=== PATIENT | male | born 1965 | race Caucasian/White ===

== ENCOUNTER 2017-03-21 10:44 | Outpatient (CLI) | payer OTHER ==
[2017-03-21 12:06] LABS: Blood Urea Nitrogen 11 mg/dL (9-20)
--- NOTE | 2017-03-21 13:17 | Magnetic Resonance Report ---
MRI of the brain with and without contrast. History: Recurrent vertigo. Procedure: Routine brain protocol with and without contrast. Findings: The posterior fossa is normal. The ventricles are normal in size and contour. There is no evidence of restricted diffusion. In the anterior aspect of the left middle cranial fossa, there is an ovoid shaped extra axial mass measuring 4.0 x 2.5 cm. This demonstrates hyperintense T2 and hypointense T1 signal with no postcontrast enhancement. No intra-axial masses are seen. There is no shift of midline 3 at the sharp-white matter junction is normal. The posterior fossa is unremarkable. The seventh eighth nerve complexes appear normal with no enhancement. The remaining visualized extracranial structures appear normal. Impression: 4.0 x 2.5 cm arachnoid cyst in the left middle cranial fossa with no significant mass effect. Otherwise the study is unremarkable.
== END 2017-03-21 10:45 | disposition home or self-care (01) ==
LOC: MRI 10:44
PROVIDERS: ATTEND Family Medicine
DX: G93.0 Cerebral cysts (principal); R42 Dizziness and giddiness
CPT/HCPCS: 36415; 70553; 82565; 84520; A9577